=== PATIENT | female | born 1975 | race American Indian/Alaskan Native ===

== ENCOUNTER 2018-10-22 08:22 | Day surgery (SDC) | payer MEDICAID ==
[~2018-10-22 08:22] MED LIST: NACL BACTERIOSTATIC INFILTRATI ONE
[2018-10-22] MEDS ORDERED: DILAUDID IV PRN (08:56)
[2018-10-22] MEDS ORDERED: VERSED IV NR (09:00)
[2018-10-22] MEDS ORDERED: NEURONTIN PO NR (09:00)
[2018-10-22] MEDS ORDERED: LACTATED RINGERS 1,000 ML IV SCH (09:00)
--- NOTE | 2018-10-22 09:51 | Anesthesia Consultation ---
Anesthesia Consult and Med Hx Date of service: 10/22/18 - Airway Anesthetic Teeth Evaluation: Good ROM Head & Neck: Adequate Mental/Hyoid Distance: Adequate Mallampati Class: Class I Intubation Access Assessment: Good - Pulmonary Exam CTA: Yes - Cardiac Exam Cardiac Exam: RRR - Pre-Operative Health Status ASA Pre-Surgery Classification: ASA2 Proposed Anesthetic Plan: General - Pulmonary Hx Smoking: Yes ("social" smoker, <1 cig per day) Hx Asthma: No Hx Respiratory Symptoms: No (no recent cough or flu-like symptoms) - Cardiovascular System Hx Hypertension: Yes Hx Heart Attack/AMI: No Hx Percutaneous Transluminal Coronary Angioplasty (PTCA): No - Central Nervous System Hx Seizures: No CVA: No Hx Psychiatric Problems: No - Gastrointestinal Hx Gastroesophageal Reflux Disease: No - Endocrine Hx Renal Disease: No Hx Liver Disease: No Hx Insulin Dependent Diabetes: No Hx Non-Insulin Dependent Diabetes: No Hx Thyroid Disease: No - Other Systems Hx Obesity: No - Additional Comments Anesthesia Medical History Comments: No hx anesthetic complications.
--- NOTE | 2018-10-22 09:51 | Anesthesia Day of Surgery ---
Anesthesia Day of Surgery - Day of Surgery Patient Examined: Yes Patient H&P Reviewed: Yes Patient is NPO: Yes
[2018-10-22] MEDS ORDERED: SILVER NITRATE TP ONE (10:09)
[2018-10-22] MEDS ORDERED: MARCAINE 0.5% INFILTRATI ONE ×2 (10:09→10:50)
[2018-10-22] MEDS ORDERED: ZEMURON IV ONE ×2 (10:18→11:37)
[2018-10-22] MEDS ORDERED: XYLOCAINE MPF 2% ONE (10:18)
[2018-10-22] MEDS ORDERED: DIPRIVAN 10 MG/ML IV ONE (10:19)
[2018-10-22] MEDS ORDERED: DILAUDID ONE (10:19)
[2018-10-22] MEDS ORDERED: NACL 0.9% IR ONE (10:50)
[2018-10-22] MEDS ORDERED: ROBINUL ONE (11:37)
[2018-10-22] MEDS ORDERED: DECADRON ONE (11:37)
[2018-10-22] MEDS ORDERED: ZOFRAN ONE (11:37)
[2018-10-22] MEDS ORDERED: TORADOL ONE (11:37)
[2018-10-22] MEDS ORDERED: BLOXIVERZ ONE (11:37)
--- NOTE | 2018-10-22 12:08 | Operative Report ---
Operative Report Operative Report: Preop diagnosis 1. Desires permanent sterilization 2. Abnormal uterine bleeding Postop diagnosis 1. Desires permanent sterilization 2. Abnormal uterine bleeding Procedure 1. Laparoscopic bilateral tubal ligation 2. Dilatation and curettage Surgeon Dr. Lizbet Garcia Findings 1. 8 weeks Anteverted uterus 2. Normal bilateral ovaries and tubes Specimen: 1. Endometrial curettings Anesthesia: General I/O EBL: <25ml Urine: 100ml clear Complications: none Disposition: Patient to PACU in stable condition INDICATION: 43yo with undesired fertility presents for bilateral tubal ligation. The risks including failure, ectopic , bleeding, infection, injury to vessels, bladder and/or bowel were discussed. Benefits and alternatives were discussed and informed consent signed. PROCEDURE: The patient was taken to OR Rm 11 in stable condition. She was placed on the bed in the supine position and adequate anesthesia was achieved. She wore SCDs for DVT prophylaxis. She was prepped and draped in the sterile fashion and a time out was done. She was re-positioned in the dorsal lithotomy position with Vijay stirrups. A red catheter was used to drain the bladder. A sterile speculum was placed per vagina and a single toothed tenaculum was placed on the anterior lip of the cervix. The uterus was dilated using Briseno dilators, sounded to 8cm and a balloon uterine manipulator was placed. Attention was then turned to the abdomen where a 0.5cm infraumbilical incision was made. The abdomen was elevated with towel clips and the 5mm Applied Fios trocar was used to insufflate the abdomen with CO2 gas. The opening pressure was noted to be 5mm Hg. An intra-abdominal survey noted no pelvic adhesions. A RLQ 5mm incision was made and 5mm trocar placed under direct visualization. The right tube was identified and traced down to the fimbriated end. A portion of the isthmus was identified, elevated and the Applied Voyant bipolar device was used to cauterize and cut the tube. The same procedure was carried out on her left tube. Both tubes were noted to be hemostatic. The RLQ trocar was removed under direct visualization. The abdomen was freed of gas and the infraumbilical trocar was removed. The infraumbilical subcutaneous tissue was closed with 0-Vicryl and skin of both incision was closed with 4-0 Monocryl. Attention was then turned to the perineum. The uterine manipulator was removed. The speculum was replaced and a #2 sharp curette was used to collect endometrial curettings. The single tooth tenaculum was removed and sites noted to be hemostatic. The procedure was ended. All counts were correct x 2. The patient was awakened from anesthesia in stable condition and transported to the PACU. I was present and scrubbed for the entire procedure.
--- NOTE | 2018-10-22 12:36 | Event Note ---
Patient states she lost prescriptions for Percocet and Motrin given to her in clinic one week ago. Her pharmacy [facility] ([facility]) was called and spoke with Mason. She states according to their system no prescriptions at that pharmacy have been filled for these drugs. Will re-write prescriptions for patient.
[2018-10-22] MEDS ORDERED: PERCOCET 5/325 PO PRN (13:00)
[2018-10-22 14:21] VITALS: BP 142/82
--- NOTE | 2018-10-22 14:36 | Post Anesthesia Evaluation ---
- Post Anesthesia Evaluation Patient Participated: Yes Airway Patent: Yes Stable Respiratory Function: Yes Nausea/Vomiting: No Temp > 96.8F: Yes Pain Manageable: Yes Adequeate Hydration: Yes Anesthesia Complications: No
== END 2018-10-22 08:23 | disposition home or self-care (01) ==
LOC: OR 08:22
PROVIDERS: ATTEND Obstetrics & Gynecology
DX: Z30.2 Encounter for sterilization (principal); N93.9 Abnormal uterine and vaginal bleeding, unspecified; N85.4 Malposition of uterus; I10 Essential (primary) hypertension; F17.200 Nicotine dependence, unspecified, uncomplicated; Z79.899 Other long term (current) drug therapy; Z88.1 Allergy status to other antibiotic agents; Z88.8 Allergy status to other drugs, medicaments and biological substances; Z98.890 Other specified postprocedural states
CPT/HCPCS: 58670; 81025; 88305; J1100; J1170; J1885; J2250; J2405; J2704; J2710; J7120